=== PATIENT | female | born 1960 | race Two or more races ===

== ENCOUNTER 2024-02-14 06:10 | Day surgery (SDC) | payer OTHER, MEDICAID, SELFPAY ==
[2024-02-13 08:38] VITALS: BMI 33.9
[2024-02-13 09:46] LABS: Basophils # (Auto) 0.1 Thou/mm3 (0.0-0.2); Basophils % (Auto) 1 % (0-2.5); Eosinophils # (Auto) 0.2 Thou/mm3 (0.0-0.5); Eosinophils % (Auto) 3 % (0-10); Hematocrit 39.2 % (36.0-46.0); Hemoglobin 12.9 g/dL (12.0-16.0); Immature Granulocytes % (Auto) 0 % (0-0); Immature Granulocytes Auto 0.02 Thou/mm3 (0.00-0.00); Lymphocytes # (Auto) 2.1 Thou/mm3 (1.0-4.8); Lymphocytes % (Auto) 35 % (10-50); Mean Corpuscular HGB Conc 32.9 g/dl (31.0-37.0); Mean Corpuscular Hemoglobin 30.4 pg (25.0-35.0); Mean Corpuscular Volume 92 fL (80-100); Monocytes # (Auto) 0.5 Thou/mm3 (0.0-0.8); Monocytes % (Auto) 9 % (0-12); Neutrophils # (Auto) 3.2 Thou/mm3 (1.8-7.7); Neutrophils % (Auto) 52 % (37-80); Nucleated Red Blood Cell % 0 /100 WBC (0); Platelet Count 408 Thou/mm3 (140-440); RDW Standard Deviation 43.9 fL (36.4-46.3); Red Blood Count 4.25 Miln/mm3 (4.00-5.20); White Blood Count 6.1 Thou/mm3 (3.6-11.0)
[2024-02-13 09:53] LABS: Partial Thromboplastin Time 28.3 Seconds (22.0-36.0); Prothrombin Time 10.7 Seconds (9.0-12.2)
[2024-02-13 09:56] LABS: Alanine Aminotransferase 19 U/L (10-49); Albumin/Globulin Ratio 1.9 (1.2-2.2); Alkaline Phosphatase 84 U/L (46-116); Anion Gap 7 (7-16); Aspartate Amino Transferase 19 U/L (0-34); BUN/Creatinine Ratio 21 Ratio (12-20); Bilirubin,Total 0.4 mg/dL (0.3-1.2); Blood Urea Nitrogen 15 mg/dL (9-23); Calcium 10.1 mg/dL (8.3-10.6); Calcium (Corrected) 10.1 mg/dL (8.5-10.1); Carbon Dioxide 28.4 mMol/L (20.0-31.0); Chloride 106 mMol/L (98-107); Creatinine (Component) 0.7 mg/dL (0.6-1.3); Estimated Creatinine Clearance 72.3 mL/min (>60); Globulin 2.6 gm/dL (2.3-3.5); Glucose 103 mg/dL (74-106); Osmolality,Calculated 282 (275-295); Potassium 3.9 mMol/L (3.4-5.1); Sodium 141 mMol/L (136-145); Total Protein 7.6 gm/dL (5.7-8.2); eGFR > 60 See Note
[2024-02-14] VITALS (7 sets, daily range): BP systolic 102–125; BP diastolic 61–80; PULSE 58–98; RESP 14–17; TEMP 36.2–36.8; O2SAT 95–99; BMI 33.6
[2024-02-14] MEDS: RINGERS LACTATED 1000 ML 1,000 ML 20 ML IV (06:58)
--- NOTE | 2024-02-14 09:53 | PD.SUROPNT ---
Date of Procedure 02/14/24 Pre Op Diagnosis Symptomatic varicose veins bilateral lower extremities Post Op Diagnosis Same as preop diagnosis Procedure Radiofrequency endovenous ablation of the greater saphenous vein left leg Left leg varicose vein excisions Findings The left greater saphenous vein was successfully closed with no evidence of saphenofemoral junction or common femoral vein thrombus All marked varicose veins were either successfully removed or disrupted Procedure Description With the patient standing in the preop area all varicose veins to be removed were carefully marked with a sharpie pen. The patient was then brought to the operating room and general anesthesia was induced. Left lower extremity was then sterilely prepped and draped. The vein ablation procedure was performed first by mapping out the course of the greater saphenous vein between the knee and the saphenofemoral junction and then accessing the vein on the medial distal thigh with a 21-gauge mini stick needle followed by mini stick wire then a 7 Polish sheath introducer was placed. The ablation catheter was then brought to the field prepped and placed into the patient carefully positioned to be 5 cm distal to the saphenofemoral junction. Tumescent anesthesia was then instilled along the treatment length of the vein. Catheter tip position was once again checked then under direct ultrasound compression the catheter was activated with 2 cycles proximally and 2 additional cycles down the leg. Saphenofemoral junction was then inspected and found to be compressible with good flow and augmentation and no evidence of thrombus either in the junction of the common femoral vein. Attention was then turned to the marked varicose veins which were removed by making a small skin shanice in the marked area with a #11 blade and bluntly enlarge the incision with a mosquito clamp and grasping the veins in sequentially excising or disrupting the. After all veins were removed and hemostasis was obtained the leg was cleaned and then Steri-Strips were placed on the incisions. This was followed by a gauze wrap and Coban. Patient woke up from anesthesia and was moved recovery in stable condition Anesthesia other (Laryngeal mask anesthesia) Pathology / specimen Other (Left leg varicose veins) Pathology comment: Left leg varicose veins Estimated Blood Loss 150 Condition Stable Disposition PACU Surgeon Guilherme Sellers MD Surgical Staff Operation Date: 02/14/24 08:30 Case Staff Anesthesiologist: Constantin Khan RN First Assistant: Estella Huffman
--- NOTE | 2024-02-14 10:05 | SUR.PHASEI ---
1005: Pt. wakes to name then drifts back to sleep, vitals stable, breathing unlabored, no complaint of pain or nausea, dressing to left leg CDI, no active bleed noted, cap refill to bilateral feet less than 3 seconds, bilateral dorsalis pedis pulses strong and regular, report received from MD Khan and Frank MORTON.
[2024-02-14] MEDS: ONDANSETRON INJ 2 MG/ML INJ 2 ML 4 MG IV (10:41)
--- NOTE | 2024-02-14 10:56 | SUR.PHASEII ---
1056: Pt. AAOx4, vitals stable, breathing unlabored, no complaint of pain or nausea, dressing to left leg CDI, no active bleed noted, had pt. march in place for 1 minute to assess for bleeding, none noted, pt. tolerated sips of soda well, pt. ambulated to wheelchair with steady gait and no assist, no complications. Gave discharge instructions to the pt. and her ride using grinder gear Markings, both verbalized understanding and had no further questions. Pt. left with all personal belongings.
== END 2024-02-14 10:56 | disposition home or self-care (01) ==
PROVIDERS: Anesthesiology; PCP Nurse Practitioner Primary Care; Referring Provider Surgery Vascular Surgery; Visit Provider Surgery Vascular Surgery
PROC: (CPT 36475; principal; 2024-02-14 08:30)
DX: I80.02 Phlebitis and thrombophlebitis of superficial vessels of left lower extremity (principal)
CPT/HCPCS: 36475; 36415; 80053; 85025; 85610; 85730; A4217; A4649; C1888; C1894; J0461; J0690; J1885; J2250; J2405; J2704; J2765; J3010; J7050; J7120

== ENCOUNTER → 2024-06-04 | Outpatient (CLI) | payer OTHER, SELFPAY ==
--- NOTE | 2024-06-04 10:30 | XR_ITS ---
Examination: Screening digital mammography, unilateral left Computer aided detection 3-D breast Tomosynthesis, unilateral Date and time of exam: June 04, 2024 1004 hours Compared to mammograms dating to March 27, 2015 Indication: Screening Technique: Nonmagnified MLO, CC views of the left breast to been obtained, reconstructed from 3-D Tomosynthesis images. R2 computer aided detection program utilized for evaluation of suspicious masses and/or abnormal calcifications. 3-D Tomosynthesis images obtained. Findings: Scattered areas of fibroglandular density. Benign calcifications. No interval suspicious masses Impression: BI-RADS category II Benign findings Recommend 1 year follow-up mammogram.
== END | disposition home or self-care (01) ==
PROVIDERS: Referring Provider Nurse Practitioner Primary Care; Visit Provider Nurse Practitioner Primary Care
DX: Z12.31 Encounter for screening mammogram for malignant neoplasm of breast (principal); R92.323 Mammographic fibroglandular density, bilateral breasts; R92.1 Mammographic calcification found on diagnostic imaging of breast
CPT/HCPCS: 77063; 77067

== ENCOUNTER 2024-10-29 13:35 | Emergency (ER) | payer OTHER, SELFPAY ==
[2024-10-29 13:52] VITALS: BP 112/68; PULSE 60; RESP 20; TEMP 36.9; O2SAT 98
--- NOTE | 2024-10-29 13:58 | XR_ITS ---
Examination: CT brain head without contrast. 2-D sagittal coronal reconstructions Date and time of exam:October 29, 2024 1428 hours INDICATIONS: Generalized head pain today CTDI: vol (mGy):40.9 DLP: (mGycm):948 Technique: Multiple CT axial sections of the brain have been obtained, 5 mm slice thickness. Contrast has not been administered. 2-D sagittal, coronal reconstructions have been obtained Low dose protocols were performed. One or more of the following dose reduction techniques were used; automated exposure control, adjustment of the mA and/or KV according to patient size, use of iterative reconstruction technique. Findings: No significant ventricular enlargement. Intra-axial or extra-axial hemorrhage density is not seen. No mass effect or midline shift Basal cisterns are not remarkable. Fourth ventricle is midline. Cranial vault intact. Impression: Negative for acute hemorrhage, mass effect or midline shift
--- NOTE | 2024-10-29 13:59 | PD.EDRME ---
Rapid Medical Screening Exam E Arrival date/time: 10/29/24 13:35 64-year-old female presents to the emergency room today for complaint of headache nosebleed ongoing intermittently for last couple weeks Chief Complaint: Headache Vital signs: Vital Signs Temperature 98.5 F 10/29/24 13:52 Pulse Rate 60 10/29/24 13:52 Respiratory Rate 20 10/29/24 13:52 Blood Pressure 112/68 10/29/24 13:52 Pulse Oximetry (%) 98 10/29/24 13:52 Oxygen Delivery Method Room Air 10/29/24 13:52
[2024-10-29 14:57] LABS: Basophils # (Auto) 0.1 Thou/mm3 (0.0-0.2); Basophils % (Auto) 1 % (0-2.5); Eosinophils # (Auto) 0.2 Thou/mm3 (0.0-0.5); Eosinophils % (Auto) 2 % (0-10); Hematocrit 38.5 % (36.0-46.0); Hemoglobin 12.5 g/dL (12.0-16.0); Immature Granulocytes Auto 0.02 Thou/mm3 (0.00-0.00); Lymphocytes # (Auto) 2.6 Thou/mm3 (1.0-4.8); Lymphocytes % (Auto) 31 % (10-50); Mean Corpuscular HGB Conc 32.5 g/dl (31.0-37.0); Mean Corpuscular Hemoglobin 30.6 pg (25.0-35.0); Mean Corpuscular Volume 94 fL (80-100); Monocytes # (Auto) 0.7 Thou/mm3 (0.0-0.8); Monocytes % (Auto) 8 % (0-12); Neutrophils # (Auto) 4.8 Thou/mm3 (1.8-7.7); Neutrophils % (Auto) 58 % (37-80); Nucleated Red Blood Cell # 0.00 Thou/mm3 (0.00-0.00); Nucleated Red Blood Cell % 0 /100 WBC (0); Platelet Count 373 Thou/mm3 (140-440); RDW Standard Deviation 45.4 fL (36.4-46.3); Red Blood Count 4.09 Miln/mm3 (4.00-5.20); White Blood Count 8.3 Thou/mm3 (3.6-11.0)
[2024-10-29 15:10] LABS: INR 1.0 (0.9-1.3); Partial Thromboplastin Time 27.6 Seconds (22.0-36.0); Prothrombin Time 11.1 Seconds (9.0-12.2)
[2024-10-29 15:13] LABS: Alanine Aminotransferase 24 U/L (10-49); Albumin, Serum 4.3 gm/dL (3.4-4.8); Albumin/Globulin Ratio 2.0 (1.2-2.2); Alkaline Phosphatase 77 U/L (46-116); Anion Gap 7 (7-16); Aspartate Amino Transferase 24 U/L (0-34); BUN/Creatinine Ratio 28 Ratio (12-20); Bilirubin,Total 0.5 mg/dL (0.3-1.2); Blood Urea Nitrogen 17 mg/dL (9-23); Calcium 9.4 mg/dL (8.3-10.6); Calcium (Corrected) 9.4 mg/dL (8.5-10.1); Carbon Dioxide 28.3 mMol/L (20.0-31.0); Chloride 110 mMol/L (98-107); Creatinine (Component) 0.6 mg/dL (0.6-1.3); Estimated Creatinine Clearance 82.2 mL/min (>60); Globulin 2.2 gm/dL (2.3-3.5); Glucose 93 mg/dL (74-106); Osmolality,Calculated 290 (275-295); Potassium 3.7 mMol/L (3.4-5.1); Sodium 145 mMol/L (136-145); Total Protein 6.5 gm/dL (5.7-8.2); eGFR > 60 See Note
--- NOTE | 2024-10-29 17:43 | EDNOTE_ITS ---
ED Headache RME/HPI General Chief Complaint: Headache Stated Complaint: HEADACHE, FREQUENT NOSE BLEEDS Time Seen by Provider: 10/29/24 15:49 Arrival date/time: 10/29/24 13:35 RME / HPI RME / HPI Narrative: 64-year-old female patient came in for evaluation regarding frequent nosebleed. Patient has been having frequent nosebleeds according to the family is lasting for few seconds. Patient also complained of on and off headache described as dull ache severity mild. Denies any dizziness denies any vomiting blood denies any trauma to the nose denies any fever and denies any focal neurologic deficit. No medication was taken prior to ER visit. Patient is taking aspirin. Related Data Home Medications ?Medication ?Instructions ?Recorded ?Confirmed aspirin 81 mg tablet,delayed 81 mg PO QDAY 11/16/23 release fenofibrate micronized 134 mg 134 mg PO QDAY 11/16/23 02/14/24 capsule lisinopril 20 mg tablet 20 mg PO QDAY 11/16/2302/13 metformin 500 mg tablet 500 mg PO QDAY 11/16/2310/30 Allergies Allergy/AdvReac Type Severity Reaction Status Date / Time No Known Allergies Allergy Verified 10/29/24 13:38 Review of Systems Review of Systems Narrative Review of Systems: Review of system reviewed and within normal limits except mentioned in HPI ED Exam Narrative Physical exam: VITAL SIGNS: Reviewed. GENERAL APPEARANCE: Alert and interactive, follows commands, no acute distress, HEAD AND FACE: Non-traumatic. ENT: PERRL, pink conjunctivitis, eyelid no trauma, Mucous membrane moist. No dried blood noted on the nose no active bleeding on the nose no masses noted on the naris ,naris is moist NECK: Supple, nontender, no nuchal rigidity. CHEST: No tenderness, no crepitus, no paradoxical movement, no retractions. LUNGS: Clear, well ventilated, symmetric, no rales, no wheezing, no ronchi, no stridor, good breath sounds bilaterally. HEART: Regular rate, regular rhythm, no murmur, no gallops. ABDOMEN: Soft, positive bowel sounds, nondistended, no guarding, nontender, no rebound, no masses, RECTAL: Deferred. GENITAL: Deferred. NEUROLOGICAL: Gross motor function intact sensory function intact, Appropriate for age. MUSCULOSKELETAL: low back nontender, full range of motion. EXTREMITIES: Nontender, full range of motion. SKIN: Color pink, dry, no rash, no lacerations, no abrasions, no contusions. LYMPHATICS: Deferred. Course Quality Measures none Orders Category Date Time Status CT head/brain wo con Stat Exams 10/29/24 13:58 Completed CBC Stat Lab 10/29/24 14:44 Completed Comprehensive Metabolic Panel Stat Lab 10/29/24 14:44 Completed Partial Thromboplastin Time Stat Lab 10/29/24 14:44 Completed Prothrombin Time with INR Stat Lab 10/29/24 14:44 Completed Vital Signs Vital signs: Vital Signs Temperature 98.5 F 10/29/24 13:52 Pulse Rate 60 10/29/24 13:52 Respiratory Rate 20 10/29/24 13:52 Blood Pressure 112/68 10/29/24 13:52 Pulse Oximetry (%) 98 10/29/24 13:52 Oxygen Delivery Method Room Air 10/29/24 13:52 Headache MDM Narrative MDM Narrative:: 64-year-old female patient came in for evaluation regarding frequent nosebleed. Patient has been having frequent nosebleeds according to the family is lasting for few seconds. Patient also complained of on and off headache described as dull ache severity mild. Denies any dizziness denies any vomiting blood denies any trauma to the nose denies any fever and denies any focal neurologic deficit. No medication was taken prior to ER visit. Patient is taking aspirin. CT scan of the head came back unremarkable. Patient's workup also came back normal no sign of anemia platelets normal the rest of the labs unremarkable. Currently there is no recurrence of nosebleeding in the ED. Patient was advised to see PCP and asked for referral to ENT for possible further evaluation. Currently there is no need to do any intervention since patient is not having any bleeding. Patient data External records reviewed:: None Clinical information provided by:: patient Social determinants that could affect healthcare access:: none Patient has the following chronic illnesses:: Hypertension diabetes mellitus How is presenting disease/condition affected by chronic disease/condition?: uneffected by Evaluation data The following diagnostics were reviewed and interpreted by me:: lab results and radiology exam(s) Lab and/or radiology exams considered but not ordered:: None Interpretation Summary: See results MDM Medications / Prescriptions Medications or Prescriptions considered but not ordered:: None Medication administrations:: None Consultations Consultation(s) initiated? (list below): No Diagnosis Differential diagnosis headache: headache and other (Nosebleeding, intermittent nosebleeding) Most likely diagnosis given after review of the tests above:: Intermittent nosebleeding, headache Admission Indicated Admission indicated?: not indicated Admission Request Was there a request for admission?: No Disposition Plan Disposition Plan: Discharge Discharge Attestation Discharge Attestation: The patient and all family members were given an opportunity to ask questions and understood the discharge instructions. Discharge instructions specifically effects, indications for sooner follow up or return to the emergency department, and the expected course of current diagnosis. Patient condition: Stable Discharge Plan Plan Patient Disposition: HOME (Self Care) Discharge Disposition comment: Stable Prescriptions/Referrals Prescriptions/Med Rec: No Action metformin 500 mg Tablet 500 mg PO QDAY lisinopril 20 mg Tablet 20 mg PO QDAY aspirin 81 mg Tablet,Delayed Release (Dr/Ec) 81 mg PO QDAY fenofibrate micronized 134 mg Capsule 134 mg PO QDAY Referrals: Iris Ramirez FNP ([email or web address]) [Primary Care Provider] - In 1 week Problem List Clinical Impression: Headache, Epistaxis Patient/Caregiver Discharge Instructions Discharge Activity: activity as tolerated Education Materials: Nosebleed Additional Instructions: Thank you for the opportunity for serving you today. You are stable for discharged . You are advised to: Follow-up with your PCP in 1 to 2 days Return to ED for worsening of symptoms Increase oral fluids As your PCP to refer you to ENT regarding your on and off nosebleeding. The CT scan of your head today came back normal. The rest of the labs unremarkable also no signs of anemia. Platelets is normal Print Language: Citizen Of [place] Stand Alone Forms: Naomi Award Info., Patient Portal Info Letter KYA/MANAGER CARE MANAGEMENT Supervising Physician KYA/ISAÍAS Supervising Physician: MD Graciela
== END 2024-10-29 18:26 | disposition home or self-care (01) ==
PROVIDERS: Nurse Practitioner Primary Care; Emergency Provider Emergency Medicine; PCP Nurse Practitioner Primary Care
DX: R51.9 Headache, unspecified (principal); R04.0 Epistaxis
CPT/HCPCS: 36415; 70450; 80053; 85025; 85610; 85730; 99284